=== PATIENT | male | born 1945 | race Two or more races ===

== ENCOUNTER 2022-11-10 10:30 | Inpatient (IN) | payer OTHER ==
[~2022-11-10] VITALS: Ht 175.3 cm; Wt 74.8 kg
[2022-11-10] MEDS ORDERED: ENALAPRIL MALEA10 MG PO (14:15)
[2022-11-10] MEDS ORDERED: GABAPENTIN600 MG PO (14:16)
[2022-11-10] MEDS ORDERED: ZETIA10 MG PO (14:16)
[2022-11-10] MEDS ORDERED: ARICEPT10 MG PO (14:17)
[2022-11-10] MEDS ORDERED: ATORVASTATIN CA10 MG PO (14:17)
[2022-11-10] MEDS ORDERED: TRAMAD PO (14:18)
[2022-11-12] MEDS ORDERED: COLACE100 MG PO (08:15)
[2022-11-12] MEDS ORDERED: PERCOCET 5-3251 EACH PO (08:16)
[2022-11-12] MEDS ORDERED: NEURONTIN800 MG PO (08:16)
[2022-11-12] MEDS ORDERED: AMOX-CLAV 875-1 EACH PO (08:16)
[2022-11-12] MEDS ORDERED: MEDROLPACK PO (08:16)
== END 2022-11-14 10:38 | disposition home health service (06) | DRG 455 ==
LOC: O/R 11-12 06:00 → SURH 11-12 06:00
PROVIDERS: ADMIT Orthopaedic Surgery Orthopaedic Surgery of the Spine; ATTEND Orthopaedic Surgery Orthopaedic Surgery of the Spine
PROC: 0SG1071 Fusion of 2 or more Lumbar Vertebral Joints with Autologous Tissue Substitute, Posterior Approach, Posterior Column, Open Approach (ICD-10-PCS; 2022-11-12)
PROC: 0ST20ZZ Resection of Lumbar Vertebral Disc, Open Approach (ICD-10-PCS; 2022-11-12)
PROC: 07DR0ZZ Extraction of Iliac Bone Marrow, Open Approach (ICD-10-PCS; 2022-11-12)
PROC: 4A12X4Z Monitoring of Cardiac Electrical Activity, External Approach (ICD-10-PCS; 2022-11-12)
PROC: XRGC0R7 Fusion of 2 or more Lumbar Vertebral Joints using Custom-Made Anatomically Designed Interbody Fusion Device, Open Approach, New Technology Group 7 (ICD-10-PCS; principal; 2022-11-12 22:00)
DX: M48.062 Spinal stenosis, lumbar region with neurogenic claudication (principal); M41.56 Other secondary scoliosis, lumbar region; M51.36 Other intervertebral disc degeneration, lumbar region; I10 Essential (primary) hypertension